=== PATIENT | female | born 2005 | race Caucasian/White ===

== ENCOUNTER 2025-06-14 07:51 | Outpatient (AMB) | payer OTHER, SELFPAY ==
--- OUTSIDE RECORDS SUMMARY | 2025-06-14 07:55 | XMS_ITS | Clinical Summary ---
Author Organization [facility] Address [address] [place] [id number] Phone Care Team Providers Care Cable Television Technician Name Role Phone Bay Barboza MD Primary Care Provider Allergies No known active allergies Medications Clindamycin Phos-Benzoyl Perox gel APPLY TO FACE, CHEST AND BACK ONCE DAILY 08/01/2022 Active spironolactone 100 MG tablet 04/21/2023 Activ e Active Problems Problem Noted Date Diagnosed Date Other specified anxiety disorders 10/16/2020 Assessment & Plan (04/22/2023 2:09 PM EDT): She feels she is doing well, not a current problem. Has support if needed Assessment & Plan (04/17/2022 4:54 PM EDT): I advised her to c/w her therapist. F/u 1 month Seasonal allergies 12/23/2019 Assessment & Plan (12/23/2019 12:01 PM EDT): Zyrtec when needed. 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 Body mass index, pediatric, 85th percentile to less than 95th percentile for age 1003/24/2018 Resolved Problems Problem Noted Date Diagnosed Date Resolved Date Acne vulgaris 04/17/2022 04/22/2023 Assessment & Plan (04/17/2022 4:54 PM EDT): Plan is to go on Accutane. Will go to [facility] COVID-19 virus RNA test resu lt positive at limit of detection 07/05/2021 07/23/2024 Overview (07/10/2021): 07/202007/05/21 Enlarged tonsils 08/29/2018 04/22/2023 Overview (04/17/2022): Snores and wake up. Snoring 08/29/2018 12/23/2019 Encounters Date Type Department Care Team Description 05/27/2025 [facility]phone [facility] [address] [id number] Bay Barboza MD Release of records from Last 3 Months Immunizations Immunization Administration Dates Next Due DTaP 01/20/2009,05/23/2005 DTaP / Hep B / IPV 2004,2004, 004 HPV Vaccine 9 Valent 04/22/2023,04/17/2022 Hep A, ped/adol 03/20/2017 Hep B, ped/adol 2004 Hib (PRP-T) 05/23/2005, 5,2004,04/11 IPV 01/20/2009 Influenza 05/11/2007 Influenza, injectable, quadrivalent 03/20/2017 Influenza, injectable, quadr ivalent, preservative free 04/22/2023,04/17/2022,03/31/2020,04/14,05/25/2009 Influenza, injectable, triva lent, preservative free 04/25/2006,05/23/2005 Influenza, intranasal, quadrivalent 06/30/2015,0 03/16/2013 MMR 11/28/2008,02/14/2005 Meningococcal Conj (Menactra) MCV4P 06/30/2015 Meningococcal Conj (Menveo) MCV4O 04/17/2022 Pneumococcal Conjugate 05/23/2005,2004,2004,04/11 Tdap 06/30/2015 Varicella 11/28/2008,02/14/2005 Family History Medical History Relation Name Comments Heart disease (Premature) Maternal Grandfather Heart disease (Premature) Maternal Grandmother Hyperlipidemia Mother Hypertension Paternal Grandmother Asthma Sister Relation Name Status Comments Father Alive Healthy age: 47 Maternal Grandfather heart d isease diagnosed with HEART DISEASE NOS Maternal Grandmother heart d isease diagnosed with HEART DISEASE NOS Mother Alive pre-diabetic Other Alive Siblings: Healt hy sister Paternal Grandfather Alive ETOH Paternal Grandmother Alive diagnos ed with Hypertension Sister Alive Social History Tobacco Use Types Packs/Day Years Used Date Smoking Tobacco: Never Assessed Hunger/Food Answer Date Recorded In the last 12 months, did y ou or your family ever eat less than you felt you should because there wasn't enough money for food? No 04/15/2023 Stable Housing Answer Date Recorded Are you worried that in the next 2 months you may not have stable housing? No 04/15/2023 Transportation Concerns Answer Date Rec orded In the last 12 months, have you or your family ever had to go without healthcare because you didn't have a way to get there? No 04/15/2023 Hazards in Home Answer Date Recorded Think about the place you li ve. Do you have problems with any of the following? Pests (mice or roaches), mold, no/not working smoke detectors, water leaks, no window guards. No 2022 Financing Utilities Answer Date Recorde d In the last 12 months, has t he electric, gas, oil, or water company threatened to shut off your services in your home? No 04/15/2023 Safety at Home Answer Date Recorded Are you or your family worried about feeling saf e in your home? No 04/15/2023 Outside Support Answer Date Recorded Do you feel that you need mo re support from other people or programs to help you care for yourself or your family? No 04/15/2023 Understanding Health Concerns Answer Da te Recorded Do you need help understandi ng your or your child's healthcare needs (diagnosis, medications, plan, etc.)? No 04/15/2023 Financing Health Concerns Answer Date R ecorded In the last 12 months, was t here a time when your child needed to see a doctor or get medications or supplies but could not because of cost? No 04/15/2023 Missing School or Work Answer Date Davian rded Did you or your child miss s chool or work because of a health problem that could have been avoided? No 04/15/2023 Comments No Sex and Gender Information Value Date Recorded Sex Assigned at Not on file Legal Sex Female 6:28 PM EDT Gender Identity Not on file Sexual Orientation Bisexual 04/22/2023 2: 11 PM EDT Last Filed Vital Signs Vital Sign Reading Time Taken Comments Blood Pressure 114/74 07/23/2024 11:14 AM EST Pulse 100 12/24/2023 9:53 AM EDT Temperature 36.8 C (98.2 F) 07/23/2024 11:14 AM EST Respiratory Rate - - Oxygen Saturation 99% 12/24/2023 9:53 AM EDT Inhaled Oxygen Concentration - - Weight 82.6 kg (182 lb 3.2 oz) 07/23/2024 11:14 AM EST Height 171.5 cm (5' 7.5 ) 04/22/2023 1:41 PM EDT Body Mass Index 28.12 04/22/2023 1:41 PM EDT Plan of Treatment Health Maintenance Due Date Last Done Comments Hepatitis A Vaccines (2 of 2 - 2-dose series) 09/17/2017 03/20/2017 Men B Vaccine (1 of 2 - Standard) 2020 HPV Vaccines (3 - 3-dose series) 07/15/2023 04/22/20, 04/17/2022 Influenza Vaccines (#1) 2025 04/22/20, 04/17/2022, 03/31/2020, Additional history exists COVID-19 Vaccine (3 - 2024-2 6 season) 2025 02/13/2021, 01/23/2021 DTaP,Tdap,and Td Vaccines (7 - Td or Tdap) 06/30/2025 06/30/2015, 01/20/2009, 05/23/2005, Additional history exists Hepatitis B Vaccines Completed 2004, 2004, 2004, Additional history exists HIB Vaccines Completed 05/23/2005, 07/24, 2004, Additional history exists Pneumococcal Vaccine Completed 05/23/2005, 2004, 2004, Additional history exists MMR Vaccines Completed 11/28/2008, 02/14/2005 Varicella Vaccines Completed 11/28/2008, 02/14/2005 IPV Vaccines Completed 01/20/2009, 07/24, 2004, Additional history exists Meningococcal Vaccine Completed 04/17/2022, 016 Procedures * Due to [facility] law, this organization might not be sharing sensitive test results. Procedure Name Priority Date/Time Associated Diagnosis Comments CHLAMYDIA AND GONORRHEA, AMPLIFIED Routine 04/22/2023 2:27 PM EDT Well adult exam from Last 3 Months or Most Recently Relevant to Health Maintenance Results * Due to [employer] law, this organization might not be sharing sensitive test results. * Chlamydia and Gonorrhoea, Amplified (04/22/2023 2:27 PM EDT) Chlamydia Trachomatis, DNA Probe NEGATIVE (NEG) [facility] Comment: No Chlamydia Trachomatis RNA detected in this patient's sample (REFERENCE RANGE/NORMAL VALUE: NOT DETECTED) Note: This test uses customer field representative- mediated amplification method to detect rRNA from C. Trachomatis URINE GC AMP PROBE NEGATIVE (NEG) [facility] Comment: No Neisseria Gonorrhoeae RNA detected in this patient's sample (REFERENCE RANGE/NORMAL VALUE: NOT DETECTED) NOTE: This test uses customer field representative-mediated amplification method to detect rRNA from N.Gonorrhoeae. A negative result does not preclude infection. In the case of a negative urine result, testing of an endocervical(female) or urethral (male) specimen is recommended if there is high clinical suspicion of infection. Due to very high sensitivity of Nucleic Acid Amplification Test, false positive results may occur. Therefore, specimen handling is extremely important. In patients in whom the disease is unlikely, additional sample for testing should be considered after an initial positive result. The performance characteristics of this test have not been evaluated in children. The Aptima Combo2 assay is not intended for the evaluation of suspected sexual abuse or for other medico-legal indications. The ordering provider should assess if the patient had consensual sex without risk of sexual abuse. Consult the [facility] if needed. Contact phone number . Therapeutic failure or success cannot be determined with the Aptima Combo2 assay since nucleic acid may persist following appropriate antimicrobial therapy. The Centers for Disease Control and Prevention (CDC) recommends confirmatory retesting using culture or a different nucleic acid amplification test when positive results occur, if indicated. Testing performed or reported by [facility], a Service of [facility], [facility] [place] [address] Curtis Hernandez MD, [employer] [facility]# [id number] Urine (Urine) 04/22/2023 2:2 7 PM EDT 04/22/2023 8:00 PM EDT us Angel Lantigua DO LAB MICROBIOLOGY - GENERAL ORDER JUAREZ Final Result [facility] from Last 3 Months or Most Recently Relevant to Health Maintenance Insurance [facility] Care Teams Cable Television Technician Relationship Specialty Start Date End Date Bay Barboza MD [address] [place] [address] PCP - General 10/29/17
--- OUTSIDE RECORDS SUMMARY | 2025-06-14 07:55 | XMS_ITS | Encounter Summary ---
Author Organization [facility] Address [address] [place] [phone] Phone Care Team Providers Care Purchase Order Checker Name Role Phone Bay Barboza MD Primary Care Provider [phone] Encounter Details Date Type Department Care Team (Late st Contact Info) Description 11/09/2017 Conversion Encounter [facility] [address] [place] [address] Bay Barboza MD [address] [place] [address] Social History Tobacco Use Types Packs/Day Years Used Date Smoking Tobacco: Never Assessed Comments Unknown Sex and Gender Information Value Date Recorded Sex Assigned at Not on file Legal Sex Female 6:28 PM EDT Gender Identity Not on file Sexual Orientation Bisexual 04/22/2023 2: 11 PM EDT documented as of this encounter Plan of Treatment Not on file documented as of this encounter Visit Diagnoses Not on filedocumented in this encounter Care Teams Purchase Order Checker Relationship Specialty Start Date End Date Bay Barboza MD [address] [place] [address] PCP - General 10/29/17 documented as of this encounter
--- NOTE | 2025-06-14 08:11 | MHC.PC.OV ---
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 Associate Director Regulatory Affairs Required: No Accompanied by: Self / Same As Patient Allergies No Known Allergies Allergy (Verified 06/14/25 08:11) Tobacco use date assessed: 06/14/25 Dental Screening Dental Screen Date: 06/14/25 Did you have a dental visit in the last 12 months?: No Did you have a dental problem in the last 6 months where you did not have access to dental care?: Yes Was dental information given to patient?: Patient has dentist HPI HPI Comments History of Present Illness Details Patient is a 20-year-old female presenting to [facility] care and for annual physical. She has a primary concern regarding her tonsils, which she describes as large, and desires to have them removed. She reports a history of recurrent strep throat as a child but never had her tonsils removed. Currently, she is experiencing mild sore throat, which she associates with a possible cold. She has not had prior surgeries and is not taking any current prescription or iwmy-hfv-rmushfe medications. She is due for her first Pap smear and agrees to the screening. There is no known family history of any diseases or cancers. She denies any use of tobacco, alcohol, or recreational drugs. 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 [facility] [facility] Social History Housing: [place] Patient Tobacco Use Status: Never used Tobacco e-Cigarette/Vaping Use: Never Used service: No Current occupational status: employed and student Current occupation: [employer] and student at [employer] Cognitive needs: No Hearing needs: No Vision needs: No Questionnaire PHQ-9 Over the last 2 weeks, how often have you been bothered by any of the following problems? 1. Little interest or pleasure in doing things: not at all 2. Feeling down, depressed, or hopeless: not at all 3. Trouble falling or staying asleep, or sleeping too much: several days 4. Feeling tired or having little energy: not at all 5. Poor appetite or overeating: not at all 6. Feeling bad about yourself - or that you are a failure or have let yourself or your family down: not at all 7. Trouble concentrating on things, such as reading the newspaper or watching television: not at all 8. Moving or speaking so slowly that other people could have noticed. Or the opposite - being so fidgety or restless that you have been moving around a lot more than usual: not at all 9. Thoughts that you would be better off or of hurting yourself in some way: not at all Total score: 1 Source: Developed by Drs. Nathen Lorenz, Debbie Gonzalez, Brandon Jesus and colleagues, with an educational johanna from [employer]. Thrive Questionnaire Date Thrive assessed: 06/14/25 I am a: Patient What is your living situation today?: I have a steady place to live Within the past 12 months, did the food you bought not last and you didn't have the money to get more?: Never true Within the past 12 months, did you worry whether your food would run out before you got money to buy more?: Never true Do you have trouble paying for medicines?: No Do you have trouble getting transportation to medical appointments?: No Do you have trouble paying your heating and electricity bill?: No Do you have trouble taking care of your child, family member or friend?: No Do you have trouble with day-to-day activities such as bathing, preparing meals, shopping, managing finances, etc.?: No Are you currently unemployed and looking for a job?: No Are you interested in more education?: Yes Please select the resources that you would like help with: None Currently or been in a relationship where the following occur: No concerns reported THRIVE Score: 0 AUDIT C Alcohol Use Questionnaire (AUDIT-C) 1. How often do you have a drink containing alcohol?: Monthly or less 2. How many drinks containing alcohol do you have on a typical day when you are drinking?: 1 or 2 3. How often do you have six or more drinks on one occasion?: Never Total Score: 1 RICKY-7 AMB Questionnaire RICKY-7 Date RICKY - 7 assessed: 06/14/25 Feeling nervous, anxious, or on edge: 0 = Not at all Not being able to stop or control worryin = Not at all Worrying too much about different things: 0 = Not at all Trouble relaxin = Not at all Being so restless that it is hard to sit still: 0 = Not at all Becoming easily annoyed or irritable: 0 = Not at all Feeling afraid as if something awful might happen: 0 = Not at all Total RICKY-7 score (0-4 normal; 5-9 mild; 10-14 moderate; 15-21 severe): 0 Source: Developed by Drs. Nathen Lorenz, Debbie Gonzalez, Brandon Jesus and colleagues, with an educational johanna from [employer]. Physical exam (Primary Care) Vital Signs: Last Vital Signs Temp 97.6 F 06/14/25 08:14 Pulse 87 06/14/25 08:14 Resp 16 06/14/25 08:14 BP 122/78 06/14/25 08:14 Pulse Ox 98 06/14/25 08:14 Oxygen Delivery Method Room Air 06/14/25 08:14 General: Well-appearing, alert, oriented ?3, in no acute distress. HEENT: Normocephalic, atraumatic, PERRLA, EOMI, no scleral icterus. External ears normal, tympanic membranes intact bilaterally, no erythema or effusion. Nares patent, normal mucosa pink, no discharge. No oral lesions, or pharyngeal erythema. Enlarged tonsils noted bilaterally. Neck Supple. Cardiovascular: RRR, S1-S2 appreciated, no murmurs, rubs or gallops. Respiratory: Lungs clear to auscultation bilaterally, no wheezes, crackles or rhonchi. Abdomen: Soft, nontender, nondistended. Normoactive bowel sounds. MSK: Normal range of motion in all extremities, no joint swelling or deformity. Neurologic: Alert and oriented X3, cranial nerves II?XII grossly intact, sensation and strength intact in bilateral lower and upper extremities. Psychiatry: Normal mood and affect. Appropriate behavior, good eye contact. BMI result Body Mass Index 31.0 Tobacco/Smoking Status: Tobacco use Status Tobacco use date assessed 06/14/25 06/14/25 08:12 Patient Tobacco Use Status Never used Tobacco 06/14/25 08:21 e-Cigarette/Vaping Use Never Used 06/14/25 08:21 PHQ-9: PHQ-9 Score PHQ-9: Total score 1 06/14/25 08:41 Thrive Assessment: Date of Thrive Assessment Date Thrive assessed 06/14/25 06/14/25 08:12 Currently or been in a relationship where the following occur: No concerns reported Office Procedures Flu Questionnaire Does the patient have a severe egg allergy?: No Does the patient have severe life threatening allergies?: No Does the patient have a fever or illness today?: No Has the patient ever had Guillain-Creola Syndrome?: No Has the patient ever had any past reaction to a flu shot?: No Immunizations Fluarix [id number] (PF) 45 mcg (15 mcg x 3)/0.5 mL IM syringe Performing Provider: Arpita Núñez MD [facility] Administered by: Kaitlin Stein LPN on 06/14/25 09:03 Dose Route Admin Location Dispensed Lot Number Expiration Date NDC Evaluation Engineer 0.5 mL IM Left Deltoid 0.5 mL [id number] 12/20/25 [id number] Clipboard VIS Given Date VIS Provided VIS Publication Date 06/14/25 Single Vaccine 24 Eligibility Eligibility Date Funding Source Not [facility] Eligible 06/14/25 Private Coding Level of Care Code New Pt Prev Care [id number] Diagnoses Establishing care with new doctor, encounter for Z76.89 Annual physical exam Z00.00 Enlarged tonsils J35.1 Cervical cancer screening Z12.4 Assessment & Plan Assessment & Plan (1) Establishing care with new doctor, encounter for: Code(s): Z76.89 - Persons encountering health services in other specified circumstances Plan: Patient is a 20-year-old female presenting to establish care. Has not seen a physician in many years. (2) Annual physical exam: Code(s): Z00.00 - Encounter for general adult medical examination without abnormal findings Plan: Up-to-date with Tdap 06/2015 Flu vaccine given today Due for her 1st Pap smear (3) Enlarged tonsils: Code(s): J35.1 - Hypertrophy of tonsils Category: Medical Plan: Patient reports history of large tonsils since childhood and reportedly history of multiple strep throat as a child. Complains of snoring and feeling of discomfort in the back of her throat. Patient would like them to be removed. Referral to ENT provided for further evaluation. (4) Cervical cancer screening: Code(s): Z12.4 - Encounter for screening for malignant neoplasm of cervix Plan: Due for her 1st Pap smear - OBGYN referral provided Orders: Orders Complete Blood Count Auto Diff Today Z00.00 - Encounter for general adult medical examination without abnormal findings Vitamin D 25-OH (D2 and D3) Today Z13.21 - Encounter for screening for nutritional disorder Lipid Panel with Reflex Today Z13.220 - Encounter for screening for lipoid disorders Hemoglobin A1c Today Z13.1 - Encounter for screening for diabetes mellitus Comprehensive Met. Panel Today Z00.00 - Encounter for general adult medical examination without abnormal findings Influenza [id number] Immunization Today Z23 - Encounter for immunization Referrals [facility] CONSULTANT Referral Z12.4 - Encounter for screening for malignant neoplasm of cervix Ear/Nose/Throat Referral J35.3 - Hypertrophy of tonsils with hypertrophy of adenoids
[2025-06-14 08:14] VITALS: BP 122/78; PULSE 87; RESP 16; TEMP 36.4; O2SAT 98; BMI 31.0
== END 2025-06-14 08:59 | disposition home or self-care (01) ==
LOC: HO.HMCH 07:52
PROVIDERS: PCP Student in an Organized Health Care Education/Training Program; Visit Provider Student in an Organized Health Care Education/Training Program
DX: Z76.89 Persons encountering health services in other specified circumstances (principal); Z00.00 Encounter for general adult medical examination without abnormal findings; J35.1 Hypertrophy of tonsils; Z12.4 Encounter for screening for malignant neoplasm of cervix; Z23 Encounter for immunization

== ENCOUNTER → 2025-06-14 07:51 | Outpatient (BNVA) | payer OTHER, SELFPAY | PROVIDERS: PCP Student in an Organized Health Care Education/Training Program; Visit Provider Student in an Organized Health Care Education/Training Program | DX: Z00.00 Encounter for general adult medical examination without abnormal findings (principal); J35.1 Hypertrophy of tonsils; Z23 Encounter for immunization; Z76.89 Persons encountering health services in other specified circumstances | CPT/HCPCS: 90471; 90656; 96127 ==